=== PATIENT | female | born 1950 | race Caucasian/White ===

== ENCOUNTER → 2017-02-03 | Day surgery (SDC) | payer OTHER ==
[~2017-02-03] VITALS: Ht 170.1 cm; Wt 108.0 kg
[~2017-02-03] MED LIST: LEVOTHYROXINE0.05 M1 PO; PREVACID SOLUTA30 MG PO; VITAMIN D-32000 UNI1 PO
--- NOTE | ~2017-02-03 | O ---
[place], [place] OPERATIVE NOTE NAME: ADOLFO WHATLEY [facility] #: [id number] UNIT #: [id number] ROOM: DOCTOR: KENAN NOEL MD BIRTHDATE: [birth year] DOS: 02/03/2017 PREOPERATIVE DIAGNOSIS: Cataract, right eye. POSTOPERATIVE DIAGNOSIS: Cataract, right eye. OPERATION: Extracapsular cataract extraction by phacoemulsification with posterior chamber intraocular lens implantation, right eye. ANESTHESIA: Monitored standby. OPERATIVE FINDINGS AND PROCEDURE: 2% Xylocaine topical anesthetic gel was applied to the eye in the preop area. The patient was taken to the operating room and prepped and draped in the standard fashion for sterile intraocular surgery. A time out procedure was performed verifying correct patient, correct site and corrects lens with Mihir Noel M.D. The operating microscope was swung into position and the lid speculum was inserted. Using a Stephanie paracentesis blade, a paracentesis was made through clear cornea. Viscoelastic was used to fill the anterior chamber. Using a metal keratome a 2.4 mm self-sealing clear corneal cataract incision was made temporally at the limbus. Using a pre-bent 25 gauge cystotome needle, a standard continuous curvilinear capsulorrhexis was performed. The anterior capsule was removed with forceps. The lens nucleus was hydrodissected and phacoemulsified in the posterior chamber. Cortical material was removed with the irrigation aspiration hand piece and the posterior capsule was then polished with a curet under irrigation. The posterior chamber and capsular bag were filled with viscoelastic. A posterior chamber intraocular lens manufactured by: [employer], Model #[id number], and 21.0 diopters in strength were then inserted into the posterior chamber and within the capsular bag using the lens cartridge and injector system. Viscoelastic was removed using the irrigation aspiration handpiece. The anterior chamber was filled with balanced salt solution through the paracentesis. Both the paracentesis site and cataract incisions were hydrated with BSS and verified to be water-tight and self-sealing. Cefuroxime 1 mg/0.1 mL was injected into the anterior chamber through the paracentesis site. The incision checked to be water-tight using a Weck-Marleen sponge. The integrity of the cataract wound and ocular tension were checked. Lid speculum and drapes were removed. The patient was transferred from the operating room to the recovery room in satisfactory condition. [place], [place] OPERATIVE NOTE NAME: ADOLFO WHATLEY UNIT #: [id number] ROOM: DOCTOR: BERT COHN,KENAN BIRTHDATE: [birth year] KENAN NOEL MD CM:OPRECORD:OPERATIVE NOTE 1207 [id number] KENAN NOEL MD 02/03/17 1349 interface
[2017-02-03 12:04] VITALS: BP 118/64
[2017-02-03 12:19] VITALS: BP 123/66
[2017-02-03 12:34] VITALS: BP 119/62
== END | disposition home or self-care (01) ==
LOC: SDC 02-02 11:00
DX: H26.9 Unspecified cataract (principal); E78.00 Pure hypercholesterolemia, unspecified; E03.9 Hypothyroidism, unspecified; Z79.899 Other long term (current) drug therapy; M19.90 Unspecified osteoarthritis, unspecified site; Z90.710 Acquired absence of both cervix and uterus; Z98.890 Other specified postprocedural states; Z98.51 Tubal ligation status

== ENCOUNTER → 2017-03-31 | Day surgery (SDC) | payer OTHER ==
[~2017-03-31] VITALS: Ht 170.1 cm; Wt 108.0 kg
[~2017-03-31] MED LIST changes: +ASPIRIN FOR CHI81 MG PO
--- NOTE | ~2017-03-31 | O ---
[place], [place] OPERATIVE NOTE NAME: ADOLFO WHATLEY [facility] #: [id number] UNIT #: [id number] ROOM: DOCTOR: KENAN NOEL MD BIRTHDATE: [birth year] DOS: 03/31/2017 PREOPERATIVE DIAGNOSIS: Cataract, left eye. POSTOPERATIVE DIAGNOSIS: Cataract, left eye. OPERATION: Extracapsular cataract extraction by phacoemulsification with posterior chamber intraocular lens implantation, left eye. ANESTHESIA: Monitored standby. OPERATIVE FINDINGS AND PROCEDURE: 2% Xylocaine topical anesthetic gel was applied to the eye in the preop area. The patient was taken to the operating room and prepped and draped in the standard fashion for sterile intraocular surgery. A time out procedure was performed verifying correct patient, correct site and corrects lens with Mihir Noel M.D. The operating microscope was swung into position and the lid speculum was inserted. Using a Stephanie paracentesis blade, a paracentesis was made through clear cornea. Viscoelastic was used to fill the anterior chamber. Using a metal keratome a 2.4 mm self-sealing clear corneal cataract incision was made temporally at the limbus. Using a pre-bent 25 gauge cystotome needle, a standard continuous curvilinear capsulorrhexis was performed. The anterior capsule was removed with forceps. The lens nucleus was hydrodissected and phacoemulsified in the posterior chamber. Cortical material was removed with the irrigation aspiration hand piece and the posterior capsule was then polished with a curet under irrigation. The posterior chamber and capsular bag were filled with viscoelastic. A posterior chamber intraocular lens manufactured by: [employer], Model #[id number] and 20.5 diopters in strength were then inserted into the posterior chamber and within the capsular bag using the lens cartridge and injector system. Viscoelastic was removed using the irrigation aspiration handpiece. The anterior chamber was filled with balanced salt solution through the paracentesis. Both the paracentesis site and cataract incisions were hydrated with BSS and verified to be water-tight and self-sealing. Cefuroxime 1 mg/0.1 mL was injected into the anterior chamber through the paracentesis site. The incision checked to be water-tight using a Weck-Marleen sponge. The integrity of the cataract wound and ocular tension were checked. Lid speculum and drapes were removed. The patient was transferred from the operating room to the recovery room in satisfactory condition. [place], [place] OPERATIVE NOTE NAME: ADOLFO WHATLEY UNIT #: [id number] ROOM: DOCTOR: KENAN NOEL MD BIRTHDATE: [birth year] KENAN NOEL MD CM:OPRECORD:OPERATIVE NOTE [id number] KENAN NOEL MD 03/31/17 1438 interface
[2017-03-31 11:11] VITALS: BP 138/75
[2017-03-31 11:52] VITALS: BP 118/64
[2017-03-31 12:05] VITALS: BP 136/66
[2017-03-31 12:20] VITALS: BP 121/62
== END | disposition home or self-care (01) ==
LOC: SDC 03-24 13:15
DX: H26.9 Unspecified cataract (principal); K21.9 Gastro-esophageal reflux disease without esophagitis; E03.9 Hypothyroidism, unspecified; Z79.899 Other long term (current) drug therapy; Z88.8 Allergy status to other drugs, medicaments and biological substances; Z98.51 Tubal ligation status; Z90.710 Acquired absence of both cervix and uterus; Z82.49 Family history of ischemic heart disease and other diseases of the circulatory system